=== PATIENT | female | born 1985 | race Caucasian/White ===

== ENCOUNTER → 2016-11-23 | Outpatient (REF) | payer BC ==
[2016-11-27 08:07] LABS: O+P EXAM Final report (.)
== END ==
LOC: M SFHCADAM 11:02
PROVIDERS: ATTEND Family Medicine
DX: R19.7 Diarrhea, unspecified (principal)

== ENCOUNTER → 2016-11-25 | Outpatient (REF) | payer BC ==
[2016-11-25 12:57] LABS: BASO % 0.4 % (0.0-1.0); EOS # 0.2 K/mm3 (0.0-0.50); EOS % 2.9 % (0.0-3.0); LARGE UNSTAINED CELL # 0.1 K/mm3 (0.0-0.4); LYMPH # 3.7 K/mm3 (1.5-6.5); MEAN CORPUSCULAR HEMOGLOBIN 29.6 pg (27.0-33.0); MEAN CORPUSCULAR HGB CONC 33.1 g/dl (32.0-36.5); MEAN CORPUSCULAR VOLUME 89.6 fl (80.0-96.0); MONO # 0.3 K/mm3 (0.0-0.8); MONO % 4.3 % (0.0-5.0); NEUTROPHILS # 2.7 K/mm3 (1.8-7.7); NEUTROPHILS % 39.4 % (36.0-66.0); PLATELET COUNT, AUTOMATED 206 k/mm3 (150-450); RED CELL DISTRIBUTION WIDTH 12.3 % (11.5-14.5); WHITE BLOOD COUNT 6.9 K/mm3 (4.0-10.0)
[2016-11-25 14:00] LABS: ALBUMIN 4.5 GM/DL (3.2-5.2); ALBUMIN/GLOBULIN RATIO 1.32 (1.00-1.93); ALKALINE PHOSPHATASE 72 U/L (45-117); ALT/SGPT 41 U/L (12-78); ANION GAP 7 MEQ/L (8-16); AST/SGOT 21 U/L (15-37); BILIRUBIN,TOTAL 0.4 MG/DL (0.2-1.0); BLOOD UREA NITROGEN 9 MG/DL (7-18); CALCIUM LEVEL 9.1 MG/DL (8.5-10.1); CARBON DIOXIDE LEVEL 27 MEQ/L (21-32); CHLORIDE LEVEL 106 MEQ/L (98-107); CHOLESTEROL LEVEL 200 MG/DL (<200); CREATININE FOR GFR 0.93 MG/DL (0.55-1.02); GLOMERULAR FILTRATION RATE > 60.0 (>60); GLUCOSE, FASTING 93 MG/DL (70-105); POTASSIUM SERUM 4.1 MEQ/L (3.5-5.1); SODIUM LEVEL 140 MEQ/L (136-145); TOTAL PROTEIN 7.9 GM/DL (6.4-8.2); TRIGLYCERIDES LEVEL 112 MG/DL (<150)
== END ==
LOC: M SFHCADAM 07:53
PROVIDERS: ATTEND Family Medicine
DX: Z31.69 Encounter for other general counseling and advice on procreation (principal); E66.09 Other obesity due to excess calories; R19.7 Diarrhea, unspecified; R10.2 Pelvic and perineal pain

== ENCOUNTER → 2017-03-23 | Outpatient (REF) | payer BC ==
[2017-03-23 21:19] LABS: BASO % 0.3 % (0.0-1.0); EOS # 0.1 K/mm3 (0.0-0.50); EOS % 1.3 % (0.0-3.0); LARGE UNSTAINED CELL # 0.1 K/mm3 (0.0-0.4); LARGE UNSTAINED CELL % 1.2 % (0.0-4.0); LYMPH # 3.6 K/mm3 (1.5-4.5); LYMPH % 33.8 % (24.0-44.0); MEAN CORPUSCULAR HEMOGLOBIN 30.8 pg (27.0-33.0); MEAN CORPUSCULAR HGB CONC 34.2 g/dl (32.0-36.5); MEAN CORPUSCULAR VOLUME 90.1 fl (80.0-96.0); MONO # 0.5 K/mm3 (0.0-0.8); MONO % 4.3 % (0.0-5.0); NEUTROPHILS # 6.1 K/mm3 (1.8-7.7); NEUTROPHILS % 59.1 % (36.0-66.0); PLATELET COUNT, AUTOMATED 206 k/mm3 (150-450); RED CELL DISTRIBUTION WIDTH 12.2 % (11.5-14.5); WHITE BLOOD COUNT 10.4 K/mm3 (4.0-10.0)
[2017-03-25 11:22] LABS: HBsAg Prenatal NEGATIVE (NEGATIVE)
== END ==
LOC: M LABDRWAD 20:40
PROVIDERS: ATTEND Obstetrics & Gynecology
DX: Z34.81 Encounter for supervision of other normal pregnancy, first trimester (principal)

== ENCOUNTER → 2017-04-10 | Outpatient (REF) | payer BC | LOC: M LAB REF 13:32 | PROVIDERS: ATTEND Obstetrics & Gynecology | DX: Z36 Encounter for antenatal screening of mother (principal); Z34.81 Encounter for supervision of other normal pregnancy, first trimester ==

== ENCOUNTER → 2017-06-18 | Outpatient (CLI) | payer BC ==
--- NOTE | 2017-06-18 17:12 | REP ---
Clinical: Anatomical evaluation. Comparison: None . Findings: Examination demonstrates a single live intrauterine in breech presentation. motion is identified by technologist. Placenta is noted anteriorly and grade zero without evidence for placenta previa or abruption. Amniotic fluid volume is normal. Cervix measures 3.4 cm in length and appears closed. Nuchal cord cannot be excluded. Gestational age by LMP 18 weeks 5 days with YAZ 11/14/2017 . Gestational age by current measurements 19 weeks 3 days with YAZ 11/09/2017 . FHR equals 141 beats per minute. BPD 4.4 cm 19 weeks 1 day HC 16.6 cm 19 weeks 2 days AC 13.9 cm 19 weeks 2 days FL 3.0 cm 19 weeks 2 days HL 3.0 cm 19 weeks 6 days HC/AC ratio 1.20 Estimated weight 283 grams ( 68th percentile). Anatomical assessment demonstrates normal structures including cranium, choroid plexus, cavum, cerebellum/posterior fossa, facial features, lungs, diaphragm, cord insertion, kidneys/bladder, spine, and extremities. A single umbilical artery noted. Limited evaluation of the heart/ventricular outflow tracts and stomach noted. Impression: 1. Single live intrauterine in breech presentation demonstrating appropriate interval growth. 2. Nuchal cord cannot be excluded. 3. Single umbilical artery noted. 4. Limited evaluation of the heart/ventricular outflow tracts and stomach. Remainder of the anatomical assessment is complete. Signed by Manpreet Francis MD 06/18/2017 05:04 P
== END ==
LOC: M RAD 16:10
PROVIDERS: ATTEND Obstetrics & Gynecology
DX: Z34.82 Encounter for supervision of other normal pregnancy, second trimester (principal); Z3A.18 18 weeks gestation of pregnancy

== ENCOUNTER → 2017-07-03 | Outpatient (CLI) | payer BC ==
--- NOTE | 2017-07-03 16:18 | REP ---
Obstetric ultrasound for anatomy: There is a single intrauterine gestation in a vertex presentation. There is movement and cardiac activity. heart rate is 100. The placenta is anterior. There is no placenta previa or abruptio. Placenta is grade zero. The amniotic fluid volume subjectively is normal. The cervix 3.1 cm in length. The maternal adnexa and cul-de-sac are unremarkable. By the ultrasound today gestational age is 21 weeks 2 days with an YAZ of 11/11/2017. By the first ultrasound gestational age is 21 weeks 4 days with an YAZ of 11/09/2017. By LMP the gestational age is 20-week 6 days. weight is for and 20 grams (0 pounds, 14 ounces). This is the 63rd percentile for 20 weeks 6 days. The following anatomic structures are identified and are unremarkable: Intracranial lateral ventricles, choroid plexus, cerebellum, cisterna magna, upper lip, face, facial profile, lungs, cardiac right and left ventricular outflow tracts, diaphragm, stomach, cord insertion, kidneys, bladder, spine and upper lower extremities. Suboptimally demonstrated are the four-chamber view of the heart and the three-vessel view of the umbilical cord. A followup study dedicated to these structures might be considered. Otherwise, there are no anomalies Signed by Ralph San MD 07/03/2017 04:09 P
== END ==
LOC: M RAD 14:58
PROVIDERS: ATTEND Specialist
DX: Z36 Encounter for antenatal screening of mother (principal)

== ENCOUNTER → 2017-07-22 | Outpatient (CLI) | payer BC ==
--- NOTE | 2017-07-23 10:08 | REP ---
Clinical: Anatomical re-evaluation. Comparison: 07/03/2017 . Findings: Examination demonstrates a single live intrauterine in cephalic presentation. motion is identified by technologist. Placenta is noted anteriorly and grade zero without evidence for placenta previa or abruption. Amniotic fluid volume is normal. Cervix measures 3.6 cm in length and appears closed. No evidence for nuchal cord. Gestational age by LMP 23 weeks 4 days with YAZ 11/14/2017 . Gestational age by current measurements 23 weeks 5-day with YAZ 11/13/2017 . FHR equals 136 beats per minute. Estimated weight 636 grams ( 33rd percentile). Amniotic fluid index 12.1 cm (9.8 - 21.9) Anatomical assessment demonstrates normal structures including cranium, choroid plexus, cavum, cerebellum/posterior fossa, facial features, lungs, four-chamber heart/ventricular outflow tracts, diaphragm, stomach, cord insertion, kidneys/bladder, spine, and extremities. Impression: 1. Single live intrauterine in cephalic presentation demonstrating appropriate interval growth. 2. Two vessel cord again identified. 3. Otherwise complete, normal anatomical assessment. Signed by Manpreet Francis MD 07/23/2017 10:00 A
== END ==
LOC: M RAD 10:49
PROVIDERS: ATTEND Advanced Practice Midwife
DX: Z36.89 Encounter for other specified antenatal screening (principal); Z3A.23 23 weeks gestation of pregnancy

== ENCOUNTER → 2017-07-24 | Outpatient (CLI) | payer BC ==
[2017-07-24 08:52] LABS: BASO % 0.3 % (0.0-1.0); EOS # 0.1 10^3/uL (0.0-0.50); EOS % 1.1 % (0.0-3.0); IMMATURE GRANULOCYTE % 0.7 % (0-0); LYMPH # 2.5 10^3/uL (1.5-4.5); LYMPH % 26.4 % (24.0-44.0); MEAN CORPUSCULAR HEMOGLOBIN 30.2 pg (27.0-33.0); MEAN CORPUSCULAR HGB CONC 32.9 g/dl (32.0-36.5); MEAN CORPUSCULAR VOLUME 91.7 fl (80.0-96.0); MONO # 0.6 10^3/uL (0.0-0.8); MONO % 5.8 % (0.0-5.0); NEUTROPHILS # 6.3 10^3/uL (1.8-7.7); NEUTROPHILS % 65.7 % (36.0-66.0); PLATELET COUNT, AUTOMATED 191 10^3/uL (150-450); RED CELL DISTRIBUTION WIDTH 13.1 % (11.5-14.5)
[2017-07-27 08:10] LABS: WHITE BLOOD COUNT 9.6 10^3/uL (4.0-10.0)
== END ==
LOC: M LAB 06:56
PROVIDERS: ATTEND Advanced Practice Midwife
DX: Z34.83 Encounter for supervision of other normal pregnancy, third trimester (principal); Z3A.00 Weeks of gestation of pregnancy not specified
CPT/HCPCS: 36415; 82950; 85025; 86850; 86900; 86901; J2790

== ENCOUNTER → 2017-09-18 | Outpatient (CLI) | payer BC ==
--- NOTE | 2017-09-18 19:13 | REP ---
Followup OB ultrasound: 09/18/2017. Clinical history: Supervision of . Known two vessel cord. Comparison: 07/22/2017, 07/03/2017. Findings: There is a single intrauterine gestation in vertex position. The cervix is 3.4 cm long and closed. There is an anterior grade 1 placenta without previa or abruption. Visually, the amniotic fluid volume is normal. Index measurement is 14.8 with a normal range 8.6 - 24.2. Largest fluid pocket is 6.7 cm. Evaluation of maternal adnexa and cul-de-sac regions showed no fluid or other abnormality grossly. biometry BPD 7.8 cm = 31 weeks 3 days HC 28.3 cm = 31 weeks 1 day AC 29.1 cm = 33 weeks 1 day FL 6.2 cm = 32 weeks H L 5.6 cm = 32 weeks 3 days This gives an average ultrasound age of 32 weeks with EDC 11/13/2017. By initial ultrasound she is 32 weeks 4 days with EDC 11/09/2017. Measurement ratios are all in the normal range. The estimated weight 1974 grams or 4 pounds 5 ounces is 54th percentile for dating based on LMP (31 weeks 6 days). Anatomy screen shows heart rate 141 and regular. Limited structures visible. The cranial vault, cavum septum pellucidum, profile and facial views, four-chamber heart view, diaphragm, left-sided stomach bubble, the two vessel cord, kidneys and bladder and the transverse and longitudinal views of the spine were unremarkable. No evidence of a nuchal cord. Impression: Single intrauterine gestation in vertex presentation with a closed 3.4 cm long cervix, visually normal amniotic fluid volume, anterior grade 1 placenta without previa or abruption and normal LIZA measurement 14.8. Size and dates show normal interval growth. See data above, No visible anomalies except for the two vessel cord. Heart rate 141 and regular. Signed by Tacho Mcarthur MD 09/18/2017 07:16 P
== END ==
LOC: M RAD 15:38
PROVIDERS: ATTEND Advanced Practice Midwife
DX: Z34.83 Encounter for supervision of other normal pregnancy, third trimester (principal); Z3A.32 32 weeks gestation of pregnancy

== ENCOUNTER → 2017-10-16 | Outpatient (CLI) | payer BC | LOC: M RAD 15:17 | DX: Z34.83 Encounter for supervision of other normal pregnancy, third trimester (principal); Z3A.34 34 weeks gestation of pregnancy | CPT/HCPCS: 76816 ==

== ENCOUNTER → 2017-11-06 | Outpatient (CLI) | payer BC | LOC: M RAD 06:28 | DX: Z36.89 Encounter for other specified antenatal screening (principal); Z3A.36 36 weeks gestation of pregnancy | CPT/HCPCS: 76816 ==

== ENCOUNTER 2017-11-07 17:05 | Inpatient (IN) | payer BC ==
[2017-11-07] MEDS ORDERED: LR 1,000 ML IV ×2 (18:01→22:13)
[2017-11-07] MEDS: LACTATED RINGER'S 1000 ML IV (18:15)
[2017-11-07 18:22] LABS: HEMATOCRIT 37.8 % (36.0-47.0); HEMOGLOBIN 12.8 g/dl (12.0-16.0); MEAN CORPUSCULAR HEMOGLOBIN 30.3 pg (27.0-33.0); MEAN CORPUSCULAR HGB CONC 33.9 g/dl (32.0-36.5); MEAN CORPUSCULAR VOLUME 89.4 fl (80.0-96.0); PLATELET COUNT, AUTOMATED 196 10^3/uL (150-450); RED BLOOD COUNT 4.23 10^6/uL (4.00-5.40); RED CELL DISTRIBUTION WIDTH 13.3 % (11.5-14.5); WHITE BLOOD COUNT 17.3 10^3/uL (4.0-10.0)
[2017-11-07 19:11] LABS: AMPHETAMINES URINE REFLEX NEGATIVE (NEGATIVE); BARBITURATES URINE REFLEX NEGATIVE (NEGATIVE); BENZODIAZEPINES URINE REFLEX NEGATIVE (NEGATIVE); CANNABINOIDS URINE REFLEX NEGATIVE (NEGATIVE); COCAINE METABOLITE URINE REFLE NEGATIVE (NEGATIVE); METHADONE URINE REFLEX NEGATIVE (NEGATIVE); OPIATES URINE REFLEX NEGATIVE (NEGATIVE); PHENCYCLIDINE URINE REFLEX NEGATIVE (NEGATIVE)
[2017-11-07] MEDS ORDERED: FENTANYL 2MCG/ML ROPIVACAINE 0.2% IN 0.9% NACL 200ML IVBAG As Ordered (19:16)
[2017-11-07] MEDS ORDERED: OXYTOCIN 30 UNITS IN 0.9% NaCl 500ML IV BAG (J2590) As Ordered ×2 (20:44→22:02)
[2017-11-07] MEDS ORDERED: ceFAZolin 2 GM/D5W 50 ML IV BAG (J0690 PER 500MG) As Ordered (21:03)
[2017-11-07] MEDS ORDERED: OXYTOCIN INJ 10 UNITS/ML VIAL (J2590) As Ordered ×2 (21:06)
[2017-11-07] MEDS ORDERED: MIDAZOLAM INJ 2 MG/2 ML VIAL (J2250) As Ordered (21:08)
[2017-11-07] MEDS ORDERED: MORPHINE PRES-FREE INJ 10 MG/10 ML VIAL (J2274) As Ordered (21:13)
[2017-11-07] MEDS ORDERED: NALOXONE INJ 0.4 MG/1 ML VIAL (J2310) IV ×3 (21:15→22:30)
[2017-11-07] MEDS ORDERED: METOCLOPRAMIDE INJ 10MG/2ML VIAL (J2765) IV (21:15)
[2017-11-07] MEDS ORDERED: LIDOCAINE PRES-FREE 2% 10ML AMP As Ordered ×2 (21:18)
[2017-11-07 21:24] LABS: CORD GAS ABE V -8.3; CORD GAS HCO3 V 19.5 MEQ/L; CORD GAS O2 SAT V 41.3 %; CORD GAS PCO2 V 48.7 mmHg; CORD GAS PH V 7.221 UNITS; CORD GAS PO2 V 20.8 mmHg; CORD GAS SBC V 16.6 MEQ/L
[2017-11-07 21:27] LABS: CORD GAS ABE A -10.3; CORD GAS HCO3 A 18.6 MEQ/L; CORD GAS O2 SAT A 43.6 %; CORD GAS PCO2 A 52.2 mmHg; CORD GAS PO2 A 22.8 mmHg; CORD GAS SBC A 15.3 MEQ/L; CORD GAS TCO2 A 20.2 MEQ/L
[2017-11-07] MEDS ORDERED: ONDANSETRON 4MG/2ML VIAL (J2405) IV ×2 (22:15→22:30)
[2017-11-07] MEDS ORDERED: NALBUPHINE HCL 10 MG/ML AMP (J2300) IV (22:15)
[2017-11-07] MEDS ORDERED: PERCOCET 5MG/325MG TAB PO (22:15)
[2017-11-07] MEDS ORDERED: fentaNYL 100 MCG/2 ML INJECTION (J3010) IV (22:15)
[2017-11-07] MEDS ORDERED: MOM 30ML SUSPENSION UDC PO (22:15)
[2017-11-07] MEDS: OXYTOCIN DRIP 30 UNITS in APPROPRIATE DILUENT 1 EA IV (22:15)
[2017-11-07] MEDS ORDERED: KETOROLAC 30 MG/ML VIAL (J1885) IV (22:15)
[2017-11-07] MEDS ORDERED: diphenhydrAMINE INJ 50MG/ML VIAL (J1200) IV (22:30)
[2017-11-07] MEDS ORDERED: EPIDURAL COMMENT XX (22:30)
[2017-11-07] MEDS ORDERED: ePHEDrine INJ 50 MG/ML VIAL IV (22:30)
[2017-11-07] MEDS ORDERED: REFRIGERATOR IV KEYS XX (22:30)
[2017-11-07] MEDS: FENTANYL/ROPIVACAINE/NACL BAG 200 ML EPIDURAL (22:30)
[2017-11-07] MEDS ORDERED: EPIDURAL/PCA KEYS XX (22:30)
[2017-11-08] MEDS: NALBUPHINE HCL 10 MG/ML AMP (J2300) IV (03:06)
[2017-11-08] MEDS: ONDANSETRON 4MG/2ML VIAL (J2405) IV (03:07)
[2017-11-08] MEDS: KETOROLAC 30 MG/ML VIAL (J1885) IV ×4 (04:43→22:31)
[2017-11-08] MEDS: PERCOCET 5MG/325MG TAB PO ×2 (04:43→15:52)
[2017-11-08 06:43] LABS: HEMATOCRIT 28.2 % (36.0-47.0); MEAN CORPUSCULAR HEMOGLOBIN 30.6 pg (27.0-33.0); MEAN CORPUSCULAR VOLUME 89.8 fl (80.0-96.0); PLATELET COUNT, AUTOMATED 141 10^3/uL (150-450); RED BLOOD COUNT 3.14 10^6/uL (4.00-5.40); RED CELL DISTRIBUTION WIDTH 13.7 % (11.5-14.5); WHITE BLOOD COUNT 19.4 10^3/uL (4.0-10.0)
[2017-11-08 06:48] LABS: HEMOGLOBIN 9.6 g/dl (12.0-16.0)
[2017-11-08] MEDS: PRENATAL VITAMINS CHEWABLE TABLET PO (09:00)
[2017-11-08] MEDS: DOCUSATE SODIUM 100 MG CAP PO ×2 (10:40→20:50)
[2017-11-08 12:48] LABS: FETAL SCREEN PROF. 1 1
[2017-11-08] MEDS: RHOGAM 300 MCG (1500 IU) INJ (J2790) IM (13:51)
[2017-11-08] MEDS: FENTANYL/ROPIVACAINE/NACL BAG 200 ML EPIDURAL (18:30)
[2017-11-08] MEDS ORDERED: ONDANSETRON 4MG/2ML VIAL (J2405) IV (21:00)
[2017-11-09] MEDS: PERCOCET 5MG/325MG TAB PO ×3 (05:41→21:33)
[2017-11-09] MEDS: IBUPROFEN 800 MG TAB PO ×3 (06:44→23:07)
[2017-11-09] MEDS: DOCUSATE SODIUM 100 MG CAP PO ×2 (08:05→21:31)
[2017-11-09] MEDS: PRENATAL VITAMINS CHEWABLE TABLET PO (08:06)
[2017-11-09] MEDS: MEASLES,MUMPS,RUBELLA VACCINE INJ (MMR-II) (90707) SC (08:06)
[2017-11-09] MEDS: FENTANYL/ROPIVACAINE/NACL BAG 200 ML EPIDURAL (08:11)
[2017-11-10] MEDS: PERCOCET 5MG/325MG TAB PO (03:15)
[2017-11-10] MEDS: IBUPROFEN 800 MG TAB PO (06:23)
[2017-11-10] MEDS: DOCUSATE SODIUM 100 MG CAP PO (08:43)
[2017-11-10] MEDS: PRENATAL VITAMINS CHEWABLE TABLET PO (08:43)
== END 2017-11-10 10:20 | disposition home or self-care (01) | DRG 540 ==
LOC: M LDO 17:05 → M OBS 11-08 00:01 → M LDI 17:47 → M OBS 11-08 04:38
PROC: 10D00Z1 Extraction of Products of Conception, Low, Open Approach (ICD-10-PCS; principal; 2017-11-07)
DX: O76 Abnormality in fetal heart rate and rhythm complicating labor and delivery (principal); Z37.0 Single live birth; Z3A.39 39 weeks gestation of pregnancy

== ENCOUNTER → 2018-03-02 | Outpatient (REF) | payer BC ==
[2018-03-04 14:13] LABS: HPV HYBRID CAPTURE II Negative (Negative)
== END ==
LOC: M LAB REF 12:52
DX: Z12.4 Encounter for screening for malignant neoplasm of cervix (principal)
CPT/HCPCS: 88142

== ENCOUNTER → 2018-04-29 | Outpatient (REF) | payer BC ==
[2018-04-29 19:45] LABS: BASO % 0.3 % (0.0-1.0); EOS # 0.1 10^3/uL (0.0-0.50); EOS % 0.7 % (0.0-3.0); HEMATOCRIT 38.3 % (36.0-47.0); HEMOGLOBIN 12.7 g/dl (12.0-15.5); IMMATURE GRANULOCYTE % 0.3 % (0-3.0); LYMPH # 2.5 10^3/uL (1.5-4.5); LYMPH % 27.7 % (24.0-44.0); MEAN CORPUSCULAR HEMOGLOBIN 29.5 pg (27.0-33.0); MEAN CORPUSCULAR HGB CONC 33.2 g/dl (32.0-36.5); MEAN CORPUSCULAR VOLUME 89.1 fl (80.0-96.0); MONO # 0.5 10^3/uL (0.0-0.8); MONO % 5.8 % (0.0-5.0); NEUTROPHILS # 5.9 10^3/uL (1.8-7.7); NEUTROPHILS % 65.2 % (36.0-66.0); PLATELET COUNT, AUTOMATED 218 10^3/uL (150-450); RED CELL DISTRIBUTION WIDTH 13.2 % (11.5-14.5)
[2018-04-29 23:52] LABS: CHLAMYDIA DNA AMPLIFICATION NEGATIVE (NEGATIVE); GC DNA AMPLIFICATION NEGATIVE (NEGATIVE)
[2018-04-30 12:03] LABS: RUBELLA IgG QUALITATIVE IMMUNE (IMMUNE)
[2018-04-30 12:11] LABS: HBsAg Prenatal NEGATIVE (NEGATIVE)
[2018-04-30 12:34] LABS: HEPATITIS C VIRUS ABY INDEX < 0.0 INDEX (<0.8)
[2018-04-30 12:35] LABS: HIV 1&2 SCREEN CENTAUR NEGATIVE (NEGATIVE)
== END ==
LOC: M LAB REF 19:10
DX: Z34.91 Encounter for supervision of normal pregnancy, unspecified, first trimester (principal); Z3A.09 9 weeks gestation of pregnancy

== ENCOUNTER → 2018-06-18 | Outpatient (CLI) | payer BC | LOC: M RAD 13:10 | DX: Z36.89 Encounter for other specified antenatal screening (principal) | CPT/HCPCS: 76811 ==

== ENCOUNTER → 2018-07-20 | Outpatient (CLI) | payer BC | LOC: M RAD 15:37 | DX: Z34.82 Encounter for supervision of other normal pregnancy, second trimester (principal); Z36.89 Encounter for other specified antenatal screening; Z3A.23 23 weeks gestation of pregnancy | CPT/HCPCS: 76816 ==

== ENCOUNTER → 2018-08-11 | Outpatient (CLI) | payer BC ==
[2018-08-11 09:44] LABS: HEMATOCRIT 34.3 % (36.0-47.0); HEMOGLOBIN 11.4 g/dl (12.0-15.5); MEAN CORPUSCULAR HEMOGLOBIN 30.8 pg (27.0-33.0); MEAN CORPUSCULAR HGB CONC 33.2 g/dl (32.0-36.5); MEAN CORPUSCULAR VOLUME 92.7 fl (80.0-96.0); PLATELET COUNT, AUTOMATED 166 10^3/uL (150-450); RED CELL DISTRIBUTION WIDTH 13.1 % (11.5-14.5); WHITE BLOOD COUNT 8.2 10^3/uL (4.0-10.0)
[2018-08-11 09:49] LABS: GLUCOSE CHALLENGE TEST 1 HOUR 140 MG/DL (LESS THAN 140)
[2018-08-12 09:06] LABS: RH ONLY RHOGAM 1 1
== END ==
LOC: M LAB 08:02
DX: Z34.82 Encounter for supervision of other normal pregnancy, second trimester (principal); Z36.89 Encounter for other specified antenatal screening
CPT/HCPCS: 82950

== ENCOUNTER → 2018-08-26 | Outpatient (CLI) | payer BC ==
[2018-08-26 07:40] LABS: GLUCOSE, FASTING 87 MG/DL (LESS THAN 95)
[2018-08-26 09:21] LABS: 1 HR GLUCOSE 119 MG/DL (LESS THAN 180)
[2018-08-26 10:01] LABS: 2 HR GLUCOSE 144 MG/DL (LESS THAN 155)
[2018-08-26 11:19] LABS: 3 HR GLUCOSE 106 MG/DL (LESS THAN 140)
== END ==
LOC: M LAB 07:06
DX: R73.02 Impaired glucose tolerance (oral) (principal)
CPT/HCPCS: 82951

== ENCOUNTER 2018-09-26 08:10 | Outpatient (CLI) | payer BC ==
[~2018-09-26] VITALS: Ht 157.5 cm; Wt 75.9 kg
[~2018-09-26 08:10] MED LIST: IBUP1TAB7 PO; PERCOCET PO; PRENTAB9 PO
[2018-09-26 08:29] VITALS: BP 134/81
[2018-09-26 08:30] VITALS: BP 130/79
[2018-09-26 08:40] VITALS: BP 123/73
[2018-09-26] MEDS ORDERED: LR 1,000 ML IV SCH (08:53)
[2018-09-26] MEDS ORDERED: LACTATED RINGER'S 1000 ML IV STA (08:53)
[2018-09-26 09:19] LABS: BASO % 0.2 % (0.0-1.0); EOS # 0.1 10^3/uL (0.0-0.50); EOS % 0.6 % (0.0-3.0); HEMATOCRIT 36.1 % (36.0-47.0); HEMOGLOBIN 12.1 g/dl (12.0-15.5); LYMPH # 1.6 10^3/uL (1.5-4.5); MEAN CORPUSCULAR HEMOGLOBIN 30.6 pg (27.0-33.0); MEAN CORPUSCULAR HGB CONC 33.5 g/dl (32.0-36.5); MEAN CORPUSCULAR VOLUME 91.2 fl (80.0-96.0); MONO # 0.5 10^3/uL (0.0-0.8); MONO % 5.2 % (0.0-5.0); NEUTROPHILS # 7.3 10^3/uL (1.8-7.7); NEUTROPHILS % 76.4 % (36.0-66.0); PLATELET COUNT, AUTOMATED 169 10^3/uL (150-450); RED BLOOD COUNT 3.96 10^6/uL (4.00-5.40); WHITE BLOOD COUNT 9.5 10^3/uL (4.0-10.0)
[2018-09-26 09:21] LABS: APPEARANCE, URINE HAZY (CLEAR); BACTERIA, URINE AUTO NEGATIVE (NEGATIVE); BILIRUBIN, URINE AUTO NEGATIVE (NEGATIVE); BLOOD, URINE BLOOD NEGATIVE (NEGATIVE); COLOR, URINE YELLOW (YELLOW); GLUCOSE, URINE (UA) AUTO NEGATIVE (NEGATIVE); KETONE, URINE AUTO TRACE mg/dL (NEGATIVE); LEUKOCYTE ESTERASE, URINE AUTO NEGATIVE (NEGATIVE); MUCUS, URINE SMALL (NEGATIVE); NITRITE, URINE AUTO NEGATIVE (NEGATIVE); PROTEIN, URINE AUTO NEGATIVE (NEGATIVE); RBC, URINE AUTO 0 /HPF (0-3); SPECIFIC GRAVITY URINE AUTO 1.018 (1.002-1.035); SQUAMOUS EPITHELIAL CELL UR AU 6 /HPF (0-6); UROBILINOGEN, URINE AUTO 0.2 mg/dL (0.0-2.0); WBC, URINE AUTO 2 /HPF (0-3)
[2018-09-26 09:37] VITALS: BP 121/69
[2018-09-26 09:54] LABS: ALBUMIN 3.3 GM/DL (3.2-5.2); ALT/SGPT 13 U/L (12-78); BILIRUBIN,TOTAL 0.3 MG/DL (0.2-1.0); BLOOD UREA NITROGEN 5 MG/DL (7-18); CALCIUM LEVEL 8.4 MG/DL (8.5-10.1); CARBON DIOXIDE LEVEL 23 MEQ/L (21-32); CHLORIDE LEVEL 107 MEQ/L (98-107); CREATININE FOR GFR 0.61 MG/DL (0.55-1.30); GLOMERULAR FILTRATION RATE > 60.0 (>60); GLUCOSE, FASTING 80 MG/DL (70-100); POTASSIUM SERUM 3.9 MEQ/L (3.5-5.1); SODIUM LEVEL 140 MEQ/L (136-145); TOTAL PROTEIN 6.9 GM/DL (6.4-8.2)
[2018-09-26 11:03] VITALS: BP 128/66
== END 2018-09-26 11:20 | disposition home or self-care (01) ==
LOC: M LDO 08:10
PROVIDERS: ATTEND Specialist
DX: O99.89 Other specified diseases and conditions complicating pregnancy, childbirth and the puerperium (principal); R42 Dizziness and giddiness; Z3A.32 32 weeks gestation of pregnancy

== ENCOUNTER → 2018-10-14 | Outpatient (REF) | payer BC ==
[2018-10-14 20:44] LABS: TOTAL PROTEIN,RANDOM URINE 19.1 MG/DL (0.0-12.0)
== END ==
LOC: M LAB REF 18:16
PROVIDERS: ATTEND Advanced Practice Midwife
DX: Z36.89 Encounter for other specified antenatal screening (principal)

== ENCOUNTER → 2018-10-21 | Outpatient (REF) | payer BC | LOC: M LAB REF 17:10 | PROVIDERS: ATTEND Advanced Practice Midwife | DX: Z34.83 Encounter for supervision of other normal pregnancy, third trimester (principal) ==

== ENCOUNTER 2018-11-11 20:54 | Inpatient (IN) | payer BC ==
[~2018-11-11] VITALS: Ht 157.5 cm; Wt 77.3 kg
[2018-11-11] MEDS ORDERED: LACTATED RINGER'S 1000 ML IV STA (21:15)
[2018-11-12] VITALS (8 sets, daily range): BP systolic 106–148; BP diastolic 51–85
[2018-11-12] MEDS ORDERED: AMOX25SS PO (04:37)
[2018-11-12] MEDS ORDERED: MUCI600T31 PO (04:37)
[2018-11-12 05:52] LABS: HEMATOCRIT 40.2 % (36.0-47.0); HEMOGLOBIN 13.3 g/dl (12.0-15.5); MEAN CORPUSCULAR HEMOGLOBIN 30.7 pg (27.0-33.0); MEAN CORPUSCULAR HGB CONC 33.1 g/dl (32.0-36.5); MEAN CORPUSCULAR VOLUME 92.8 fl (80.0-96.0); PLATELET COUNT, AUTOMATED 162 10^3/uL (150-450); RED BLOOD COUNT 4.33 10^6/uL (4.00-5.40); WHITE BLOOD COUNT 8.8 10^3/uL (4.0-10.0)
[2018-11-12] MEDS ORDERED: LR 1,000 ML IV SCH ×2 (06:00→09:00)
[2018-11-12] MEDS ORDERED: BICITRA 30ML SOLN UDC PO ONE (06:00)
[2018-11-12] MEDS ORDERED: MORPHINE PRES-FREE INJ 10 MG/10 ML VIAL (J2274) As Ordered ONE (07:16)
[2018-11-12] MEDS ORDERED: BUPIVACAINE/DEXTROSE 0.75% 2 ML AMP As Ordered ONE (07:16)
[2018-11-12] MEDS ORDERED: OXYTOCIN INJ 10 UNITS/ML VIAL (J2590) As Ordered ONE (07:16)
[2018-11-12] MEDS ORDERED: PHENYLephrine HCL 500 MCG/5 ML (100MCG/ML) SYRINGE (J2370) As Ordered ONE (07:17)
[2018-11-12] MEDS ORDERED: ePHEDrine SULFATE 25 MG/5 ML(5MG/ML) SYRINGE As Ordered ONE (07:17)
[2018-11-12] MEDS ORDERED: diphenhydrAMINE INJ 50MG/ML VIAL (J1200) IV PRN (07:46)
[2018-11-12] MEDS ORDERED: ONDANSETRON 4MG/2ML VIAL (J2405) IV PRN ×3 (07:46→09:00)
[2018-11-12] MEDS ORDERED: NALOXONE INJ 0.4 MG/1 ML VIAL (J2310) IV PRN ×2 (07:46)
[2018-11-12] MEDS ORDERED: NALBUPHINE HCL 10 MG/ML AMP (J2300) IV PRN (07:46)
[2018-11-12] MEDS ORDERED: KETOROLAC 60 MG/2 ML VIAL (J1885) As Ordered ONE (08:28)
[2018-11-12] MEDS ORDERED: ONDANSETRON 4MG/2ML VIAL (J2405) As Ordered ONE (08:28)
[2018-11-12] MEDS ORDERED: OXYTOCIN DRIP 30 UNITS in APPROPRIATE DILUENT 1 EA IV SCH (08:43)
[2018-11-12] MEDS ORDERED: MEASLES,MUMPS,RUBELLA VACCINE INJ (MMR-II) (90707) SC SCH (08:45)
[2018-11-12] MEDS ORDERED: DOCUSATE SODIUM 100 MG CAP PO PRN (08:45)
[2018-11-12] MEDS ORDERED: RHOGAM 300 MCG (1500 IU) INJ (J2790) IM SCH (08:45)
[2018-11-12] MEDS ORDERED: PERCOCET 5MG/325MG TAB PO PRN ×2 (08:45→09:00)
[2018-11-12] MEDS ORDERED: fentaNYL 100 MCG/2 ML INJECTION (J3010) IV PRN (09:00)
[2018-11-12] MEDS ORDERED: METOCLOPRAMIDE INJ 10MG/2ML VIAL (J2765) IV PRN (09:00)
[2018-11-12] MEDS ORDERED: OXYTOCIN 30 UNITS IN 0.9% NaCl 500ML IV BAG (J2590) As Ordered ONE (09:02)
--- NOTE | 2018-11-12 09:11 | RO ---
DATE OF PROCEDURE: 11/11/2018 PREPROCEDURE DIAGNOSIS: 39 weeks prior section times one. POSTPROCEDURE DIAGNOSIS: 39 weeks prior section times one. PROCEDURE: Repeat low transverse section. SURGEON: Dr. Presley Ray. HAM CURER: VERITO Pickard ANESTHESIA: Spinal. ESTIMATED BLOOD LOSS: 500 mL. URINE OUTPUT: 25 mL. FLUIDS: 1000 mL lactated ringers. FINDINGS: 3400 grams, 7 pound 8 ounce female , 8 and 9. Normal uterus, fallopian tubes and ovaries. OPERATIVE SUMMARY: The patient was taken to the operating room where spinal anesthesia was induced. She was prepped and draped in a sterile fashion in the supine position. Drew catheter was placed. A Pfannenstiel skin incision was made with a scalpel and carried through to the fascia. The fascia was nicked and extended. The fascia was dissected off the rectus muscles. The rectus muscles were divided. The peritoneal cavity was entered. Bladder flap was created. Curvilinear incision was made in the lower uterine segment until clear fluid was noted. This was extended manually. The infant was delivered in vertex position without difficulty. The cord was doubly clamped and cut. The infant was handed off to the awaiting nurses. The placenta was expressed. The uterus was exteriorized and cleared of clots and debris. Uterine incision was closed with #0 Vicryl in a running locked fashion. A second imbricating layer of #0 Vicryl was placed. The uterus was placed back in the abdominal cavity. The peritoneum was closed with #2-0 Vicryl in a running fashion. The fascia was closed with #0 Vicryl in a running fashion. The deep layer was irrigated and closed with #2-0 Chromic. The skin was closed with #4-0 Monocryl subcuticular sutures. Sponge, instrument, needle counts were correct. VERITO Pickard, assisted with all aspects of the procedure from beginning to end. She assisted with opening all layers of the abdomen and creating the hysterotomy. She assisted with expulsion of the fetus. She then assisted with closure of all layers.
[2018-11-12] MEDS: PRENATAL VITAMINS CHEWABLE TABLET PO SCH (11:30)
[2018-11-12] MEDS: LR 1,000 ML IV SCH ×2 (11:57→16:49)
[2018-11-12] MEDS: METOCLOPRAMIDE INJ 10MG/2ML VIAL (J2765) IV PRN ×2 (14:18→20:17)
[2018-11-12] MEDS: KETOROLAC 30 MG/ML VIAL (J1885) IV SCH ×2 (15:07→21:10)
[2018-11-12] MEDS ORDERED: LR 500 ML IV ONE (17:15)
[2018-11-12] MEDS: PERCOCET 5MG/325MG TAB PO PRN (20:17)
[2018-11-13 02:05] VITALS: BP 137/60
[2018-11-13] MEDS: KETOROLAC 30 MG/ML VIAL (J1885) IV SCH (03:42)
[2018-11-13 06:13] VITALS: BP 104/65
[2018-11-13 06:42] LABS: HEMATOCRIT 28.6 % (36.0-47.0); MEAN CORPUSCULAR HGB CONC 32.9 g/dl (32.0-36.5); MEAN CORPUSCULAR VOLUME 94.4 fl (80.0-96.0); PLATELET COUNT, AUTOMATED 141 10^3/uL (150-450); RED BLOOD COUNT 3.03 10^6/uL (4.00-5.40); WHITE BLOOD COUNT 10.3 10^3/uL (4.0-10.0)
--- NOTE | 2018-11-13 06:51 | IPNPDOC ---
Text Note Date of Service The patient was seen on 11/13/18. NOTE PO #1 Feels well. Adequate pain managmenet. Breast and bottle feeding. Voiding. VSS, afebrile, normotensive. CBC pending Breasts soft,n ipples intact Fundus firm Dressing intact, old drainage Lochia rubra light without odor PO #1 Routine care. Anticipate D/C in am VS,Fishbone, I+O VS, Fishbone, I+O Vital Signs Date Time Temp Pulse Resp B/P (MAP) Pulse Ox O2 Delivery O2 Flow Rate FiO2 11/13/18 06:13 98.0 71 18 104/65 (78) 99 I&O- Last 24 Hours up to 6 AM 11/13/18 06:00 Intake Total 3593 ml Output Total 1725 ml Balance 1868 ml Paulina Villalpando CNM Nov 13, 2018 06:51
[2018-11-13 06:56] LABS: HEMOGLOBIN 9.4 g/dl (12.0-15.5)
[2018-11-13] MEDS: PERCOCET 5MG/325MG TAB PO PRN ×2 (08:13→15:54)
[2018-11-13] MEDS: PRENATAL VITAMINS CHEWABLE TABLET PO SCH (08:13)
[2018-11-13 10:00] VITALS: BP 122/71
[2018-11-13] MEDS: IBUPROFEN 800 MG TAB PO SCH ×2 (11:00→18:58)
[2018-11-13 14:00] VITALS: BP 125/68
[2018-11-13 18:00] VITALS: BP 124/74
[2018-11-13 22:00] VITALS: BP 116/58
[2018-11-14 02:17] VITALS: BP 116/59
[2018-11-14] MEDS: IBUPROFEN 800 MG TAB PO SCH (02:45)
[2018-11-14 06:00] VITALS: BP 110/59
[2018-11-14] MEDS ORDERED: PERCOCET PO (08:10)
[2018-11-14] MEDS ORDERED: IBUP1TAB7 PO (08:11)
[2018-11-14] MEDS: PRENATAL VITAMINS CHEWABLE TABLET PO SCH (08:59)
[2018-11-14] MEDS: PERCOCET 5MG/325MG TAB PO PRN (09:24)
[2018-11-14] MEDS ORDERED: COLA100C5 PO (09:56)
--- NOTE | 2018-11-15 04:07 | DSES ---
DATE OF ADMISSION: 11/12/2018 DATE OF DISCHARGE: 11/14/2018 DISCHARGE DIAGNOSIS: Repeat section. DISCHARGE CONDITION: Stable. PROCEDURES PERFORMED WHILE IN HOSPITAL: 1. Spinal anesthesia. 2. section. HISTORY AND HOSPITAL COURSE: This patient presented for a scheduled section which was unremarkable and productive of a liveborn female , Apgars 8 and 9, weight was 3400 grams. Estimated blood loss was 500 mL. She did well postoperatively. By postop day #2 had met all discharge criteria. She was discharged home in stable condition. Physical exam on day of discharge: Her vital signs are stable. She is afebrile. General appearance is well appearing in no acute distress. Her abdomen was appropriately tender. Fundus was below umbilicus. Her incision was dressed. Extremities negative for calf tenderness. DISCHARGE MEDICATION: Ibuprofen and Percocet. DISCHARGE INSTRUCTIONS: 1. She was instructed to follow up in two weeks for incision check. 2. To remain on pelvic rest. 3. To report severe pain, heavy vaginal bleeding, fever or incisional issues.
== END 2018-11-14 11:00 | disposition home or self-care (01) | DRG 540 ==
LOC: M LDI 20:54 → M OBS 11-12 11:00
PROVIDERS: ADMIT Specialist; ATTEND Specialist
PROC: 10D00Z1 Extraction of Products of Conception, Low, Open Approach (ICD-10-PCS; principal; 2018-11-11)
DX: O34.211 Maternal care for low transverse scar from previous cesarean delivery (principal); Z3A.39 39 weeks gestation of pregnancy; Z37.0 Single live birth

== ENCOUNTER → 2020-06-08 | Outpatient (REF) | payer BC ==
[~2020-06-08] MED LIST changes: +AMOX25SS PO; +COLA100C5 PO; +MUCI600T31 PO
[2020-06-08 15:06] LABS: FREE T4 1.1 NG/DL (0.76-1.46); THYROID STIMULATING HORMONE 0.967 uIU/ML (0.358-3.740)
== END ==
LOC: M LABDRWAD 12:34 → M LAB REF 12:34
PROVIDERS: ATTEND Family Medicine
DX: F33.0 Major depressive disorder, recurrent, mild (principal)

== ENCOUNTER → 2020-09-13 | Outpatient (REF) | payer BC | LOC: M SFHCADAM 16:11 | PROVIDERS: ATTEND Family Medicine | DX: N76.0 Acute vaginitis (principal) ==

== ENCOUNTER → 2021-03-05 | Outpatient (REF) | payer BC ==
[2021-03-05 13:02] LABS: BASO % 0.6 % (0.0-1.0); EOS # 0.2 10^3/uL (0.0-0.5); EOS % 2.8 % (0.0-3.0); HEMATOCRIT 41.8 % (36.0-47.0); HEMOGLOBIN 13.6 g/dl (12.0-15.5); LYMPH # 2.8 10^3/uL (1.5-5.0); LYMPH % 43.7 % (24.0-44.0); MEAN CORPUSCULAR HEMOGLOBIN 29.2 pg (27.0-33.0); MEAN CORPUSCULAR HGB CONC 32.5 g/dl (32.0-36.5); MEAN CORPUSCULAR VOLUME 89.9 fl (80.0-96.0); MONO # 0.5 10^3/uL (0.0-0.8); MONO % 7.1 % (2.0-8.0); NEUTROPHILS # 2.9 10^3/uL (1.5-8.5); NEUTROPHILS % 45.3 % (36.0-66.0); PLATELET COUNT, AUTOMATED 183 10^3/uL (150-450); RED BLOOD COUNT 4.65 10^6/uL (4.00-5.40); WHITE BLOOD COUNT 6.5 10^3/uL (4.0-10.0)
[2021-03-05 13:36] LABS: ALT/SGPT 31 U/L (12-78); BILIRUBIN,TOTAL 0.3 MG/DL (0.2-1.0); BLOOD UREA NITROGEN 11 MG/DL (7-18); CALCIUM LEVEL 9.2 MG/DL (8.5-10.1); CARBON DIOXIDE LEVEL 26 MEQ/L (21-32); CHLORIDE LEVEL 109 MEQ/L (98-107); CHOLESTEROL LEVEL 210 MG/DL (<200); CREATININE FOR GFR 0.72 MG/DL (0.55-1.30); GLOMERULAR FILTRATION RATE > 60.0 (>60); GLUCOSE, FASTING 89 MG/DL (70-100); HDL CHOLESTEROL 58 MG/DL (>40); LDL CHOLESTEROL 119 MG/DL (<100); NON-HDL-C 152 MG/DL; POTASSIUM SERUM 4.5 MEQ/L (3.5-5.1); SODIUM LEVEL 140 MEQ/L (136-145); THYROID STIMULATING HORMONE 0.719 uIU/ML (0.358-3.740); TOTAL PROTEIN 7.4 GM/DL (6.4-8.2); TRIGLYCERIDES LEVEL 165 MG/DL (<150)
== END ==
LOC: M SFHCADAM 10:18
PROVIDERS: ATTEND Family Medicine
DX: Z00.00 Encounter for general adult medical examination without abnormal findings (principal)

== ENCOUNTER → 2021-04-30 | Outpatient (CLI) | payer BC ==
[2021-04-30 14:13] LABS: HEMATOCRIT 36.5 % (36.0-47.0); HEMOGLOBIN 12.2 g/dl (12.0-15.5); MEAN CORPUSCULAR HEMOGLOBIN 29.8 pg (27.0-33.0); MEAN CORPUSCULAR HGB CONC 33.4 g/dl (32.0-36.5); PLATELET COUNT, AUTOMATED 206 10^3/uL (150-450)
[2021-04-30 15:24] LABS: HIV 1&2 SCREEN CENTAUR NEGATIVE (NEGATIVE)
[2021-04-30 18:10] LABS: GC DNA AMPLIFICATION NEGATIVE (NEGATIVE)
== END ==
LOC: M PLALAB 10:45
PROVIDERS: ATTEND Obstetrics & Gynecology
DX: O34.211 Maternal care for low transverse scar from previous cesarean delivery (principal); Z3A.00 Weeks of gestation of pregnancy not specified

== ENCOUNTER → 2021-06-19 | Outpatient (REF) | payer BC | LOC: M SFHCWAGY 12:37 | PROVIDERS: ATTEND Advanced Practice Midwife | DX: O34.211 Maternal care for low transverse scar from previous cesarean delivery (principal) ==

== ENCOUNTER → 2021-07-05 | Outpatient (CLI) | payer BC ==
--- NOTE | 2021-07-05 12:16 | REP ---
INDICATION: ANATOMY. COMPARISON: None. TECHNIQUE: Transabdominal scanning FINDINGS: Multiple ultrasonographic images of the gravid uterus shows a single living intrauterine gestation in variable positions. The placenta is posterior and not low-lying. The cervix measures 3.7 cm in length and is closed. Doppler interrogation of the heart shows a heart rate of 149 beats per minute. BPD: 4.3 cm 19 weeks 0 days HC: 16.8 cm 19 weeks 3 days AC: 15.4 cm 20 weeks 4 days FL: 3.3 cm 20 weeks 1 day The estimated weight is 339 g which is at the 41st percentile for a 20 week 2 day gestational age. The anatomical structures seen to be unremarkable are as follows: Thalami, cavum septum pellucidum, cerebellum, cisterna magna, cerebral ventricles, spine, extremities, upper lip, urinary bladder, stomach, and extremities. Kidneys, four-chamber heart, ventricular outflow tracts, cord insertion, and three-vessel umbilical cord were suboptimally visualized. IMPRESSION: Single living intrauterine gestation as described above an estimated gestational age of 20 weeks 0 days via composite criteria and an estimated date of delivery of 11/22/2021 by today's exam. No anomalies were detected, however, I recommend a follow-up examination to optimally visualize those structures not well seen today as described above. <Electronically signed by Clem Schilling > 07/05/21 [id number]
== END ==
LOC: M WHC 11:01
PROVIDERS: ATTEND Specialist
DX: Z34.82 Encounter for supervision of other normal pregnancy, second trimester (principal); Z3A.20 20 weeks gestation of pregnancy

== ENCOUNTER → 2021-08-07 | Outpatient (CLI) | payer BC ==
--- NOTE | 2021-08-08 11:46 | REP ---
INDICATION: F/U ANATOMY. COMPARISON: 07/05/2021. TECHNIQUE: Real-time sonographic evaluation of the gravid uterus performed. FINDINGS: Estimated gestational age is25 weeks 0 days, EDC 11/20/2021. Today's measurements indicate appropriate growth. Presentation: Variable Placenta posterior, grade 0, without evidence of placenta previa. heart rate is recorded at 152 beats per minute. Amniotic fluid is subjectively normal. Closed cervical length is measured at 4.5 cm. Biometry chart: BPD: 59 mm, 24 weeks 1 days, 32nd percentile. HC: 223 mm, 24 weeks 2 days, 35th percentile AC: 212 mm, 25 weeks 5 days, 65th percentile Femur length: 43 mm, 24 weeks 1 days, 33rd percentile HC to AC ratio: 1.05, normal range 1.01-1.20. Estimated weight: 753g, 38th percentile. anatomy: The cord insertion, three-vessel cord, bladder, four-chamber heart, ventricular outflow tracts and kidneys are visualized and are grossly unremarkable. IMPRESSION: Viable single intrauterine gestation as above. <Electronically signed by Ralph Salinas > 08/08/21 [id number]
== END ==
LOC: M WHC 15:01
PROVIDERS: ATTEND Advanced Practice Midwife
DX: Z36.2 Encounter for other antenatal screening follow-up (principal); Z3A.25 25 weeks gestation of pregnancy

== ENCOUNTER → 2021-08-14 | Outpatient (CLI) | payer BC ==
[2021-08-14 13:45] LABS: HEMATOCRIT 35.1 % (36.0-47.0); HEMOGLOBIN 11.6 g/dl (12.0-15.5); MEAN CORPUSCULAR HEMOGLOBIN 30.6 pg (27.0-33.0); MEAN CORPUSCULAR VOLUME 92.6 fl (80.0-96.0); PLATELET COUNT, AUTOMATED 178 10^3/uL (150-450); RED BLOOD COUNT 3.79 10^6/uL (4.00-5.40); WHITE BLOOD COUNT 7.7 10^3/uL (4.0-10.0)
[2021-08-14 15:43] LABS: GC DNA AMPLIFICATION NEGATIVE (NEGATIVE)
== END ==
LOC: M PLALAB 09:54
PROVIDERS: ATTEND Advanced Practice Midwife
DX: Z36.9 Encounter for antenatal screening, unspecified (principal); Z3A.22 22 weeks gestation of pregnancy
CPT/HCPCS: 36415; 82950; 85027; 86850; 86900; 86901; 87491; 87591; J2790

== ENCOUNTER 2021-08-28 18:15 | Outpatient (CLI) | payer BC ==
[2021-08-28] VITALS (17 sets, daily range): BP systolic 96–156; BP diastolic 50–85
[~2021-08-28] VITALS: Ht 157.5 cm; Wt 78.8 kg
[2021-08-28] MEDS ORDERED: HOME MED LIST COMPLETE! XX SCH (19:05)
[2021-08-28 19:55] LABS: HEMATOCRIT 38.2 % (36.0-47.0); HEMOGLOBIN 12.8 g/dl (12.0-15.5); MEAN CORPUSCULAR HEMOGLOBIN 30.2 pg (27.0-33.0); MEAN CORPUSCULAR HGB CONC 33.5 g/dl (32.0-36.5); MEAN CORPUSCULAR VOLUME 90.1 fl (80.0-96.0); PLATELET COUNT, AUTOMATED 207 10^3/uL (150-450); RED BLOOD COUNT 4.24 10^6/uL (4.00-5.40); WHITE BLOOD COUNT 9.9 10^3/uL (4.0-10.0)
[2021-08-28 20:30] LABS: ALBUMIN 3.5 GM/DL (3.2-5.2); ALT/SGPT 16 U/L (12-78); BILIRUBIN,TOTAL 0.2 MG/DL (0.2-1.0); BLOOD UREA NITROGEN 7 MG/DL (7-18); CALCIUM LEVEL 9.2 MG/DL (8.5-10.1); CARBON DIOXIDE LEVEL 24 MEQ/L (21-32); CHLORIDE LEVEL 109 MEQ/L (98-107); CREATININE FOR GFR 0.59 MG/DL (0.55-1.30); GLOMERULAR FILTRATION RATE > 60.0 (>60); GLUCOSE, FASTING 77 MG/DL (70-100); LDH LACTATE DEHYDROGENASE 182 U/L (84-246); POTASSIUM SERUM 3.9 MEQ/L (3.5-5.1); SODIUM LEVEL 140 MEQ/L (136-145); TOTAL PROTEIN 7.5 GM/DL (6.4-8.2); URIC ACID 4.1 MG/DL (2.6-6.0)
[2021-08-28 20:40] LABS: CREATININE,RANDOM URINE 31.9 MG/DL; TOTAL PROTEIN,RANDOM URINE 10.4 MG/DL (0.0-12.0)
[2021-08-28] MEDS ORDERED: ACETAMINOPHEN 500 MG TAB PO ONE (21:00)
[2021-08-29 00:07] VITALS: BP 107/58
--- NOTE | 2021-08-29 02:07 | IPNPDOC ---
Text Note Date of Service The patient was seen on 08/29/21. NOTE Subjective: Janet is a 35-year-old female who is a who is 28 weeks gestation. She presented to Labor and delivery with complaints of dizziness. Dizziness only occurred at night prior to bed. She reports symptoms feel like her head is spinning and occurs with movement. This was happening for about a week. On 08/28/21 she reported dizziness all day with any movement. Denies dizziness when moving head left to right. She also states she got a headache that started late this afternoon and rates it a 6 out of 10. Denies taking anything for her headache. She denies any history of migraines or vertigo. States she knows she doesn't drink enough fluid but has tried over the last week to increase intake. She did have a few elevated BPs when she arrived to unit. Given a dose of Tylenol and instructed to rest. at bedside. At time of reevaluation patient reported no dizziness with movement and no headache. OB Hx: -11/07/17: 38 weeks; section of living male weighing 6 lbs 7 oz due to NRFHR while fully dilated -11/12/18: 39 weeks repeat section of living female weighing 7 lbs 6 oz. Medical Hx: rosacea and allergic rhinitis Surgical Hx: section x2 and oral surgery Family history: HTN, hyperlipidemia, diabetes, bladder cancer, asthma, brain aneurysm Social Hx: ; former smoker, denies use of drugs or alcohol. Objective: VS and labs: see below. FHR: 130, moderate variability, positive accelerations, no decelerations [place]: no contractions General: Alert and oriented. Does not appear to be in any distress or in any pain. Respiratory: Regular rate and rhythm. Breathing comfortably on room air. Lungs clear bilaterally. Cardiac: Regular rate without murmurs. Abdomen: Soft and not tender with palpation. Attempt at table tilt test done. Patient reports dizziness not occurring and no nystagmus noted. Patient moved in multiple positions and reported dizziness when she stood up. Assessment: IUP at 28 weeks gestation, dizziness Plan: Reviewed findings with Dr. Ray and plan of care collaborated with him. Patient reports no headache after treatment and no elevated blood pressures were recorded once treated. Reviewed labs. Consider 24 hour urine if she has elevated BP in office. If symptoms persist we will do a neurology consult and a cardiac consult. Instructed patient that if she gets another headache she needs to take Tylenol. Reviewed preeclamptic symptoms. Reviewed access to care, kick count, labor signs and danger signs to report. VS,Fishbone, I+O VS, Fishbone, I+O Laboratory Tests 08/28/21 19:30 Item Value Date Time Sodium Level 140 MEQ/L 08/28/211929 Potassium Level 3.9 MEQ/L 08/28/211929 Chloride Level 109 MEQ/L H 08/28/211929 Carbon Dioxide Level 24 MEQ/L 08/28/211929 Anion Gap 7 MEQ/L L 08/28/211929 Blood Urea Nitrogen 7 MG/DL 08/28/211929 Creatinine 0.59 MG/DL 08/28/211929 Glomerular Filtration Rate > 60.0 08/28/211929 Fasting Glucose 77 MG/DL 08/28/211929 Uric Acid 4.1 MG/DL 08/28/211929 Calcium Level 9.2 MG/DL 08/28/211929 Total Bilirubin 0.2 MG/DL 08/28/211929 Aspartate Amino Transf (AST/SGOT) 11 U/L 08/28/211929 Alanine Aminotransferase (ALT/SGPT) 16 U/L 08/28/211929 Alkaline Phosphatase 87 U/L 08/28/211929 Lactate Dehydrogenase 182 U/L 08/28/211929 Total Protein 7.5 GM/DL 08/28/211929 Albumin 3.5 GM/DL 08/28/211929 Albumin/Globulin Ratio 0.9 L 08/28/211929 Item Value Date Time Urine Random Creatinine 31.9 MG/DL 08/28/211929 Urine Random Total Protein 10.4 MG/DL 08/28/211929 Item Value Date Time Coronavirus (COVID-19)(PCR) NEGATIVE 08/28/211934 Vital Signs Date Time Temp Pulse Resp B/P (MAP) Pulse Ox O2 Delivery O2 Flow Rate FiO2 08/29/21 00:07 97.6 66 107/58 (74) 08/28/21 18:36 16 08/28/21 18:31 99 Room Air Vital Signs Label Value Date Time Patient Temperature 98.8 degrees F 08/28/211830 Temperature Source Temporal 08/28/21 1831 Pulse 93 08/28/21 1831 Pulse 93 08/28/21 1831 Blood Pressure Assessment 131/73 (92) 08/28/21 1831 Source Automatic Cuff (NIBP) Blood Pressure Assessment 149/85 (106) 08/28/21 1836 Source Automatic Cuff (NIBP) Blood Pressure Assessment 145/82 (103) 08/28/21 1941 Source Automatic Cuff (NIBP) Blood Pressure Assessment 145/80 (101) 08/28/212051 Source Automatic Cuff (NIBP) Blood Pressure Assessment 106/55 (72) 08/28/212121 Source Automatic Cuff (NIBP) Blood Pressure Assessment 103/58 (73) 08/28/212135 Source Automatic Cuff (NIBP) Blood Pressure Assessment 103/57 (72) 08/28/21 215 Source Automatic Cuff (NIBP) Blood Pressure Assessment 101/50 (67) 08/28/21 2206 Source Automatic Cuff (NIBP) Blood Pressure Assessment 102/56 (71) 08/28/21 2221 Source Automatic Cuff (NIBP) Blood Pressure Assessment 103/51 (68) 08/28/21 2251 Source Automatic Cuff (NIBP) Blood Pressure Assessment 122/67 (85) 08/28/21 2307 Source Automatic Cuff (NIBP) Blood Pressure Assessment 96/50 (65) 08/28/21 2322 Source Automatic Cuff (NIBP) Blood Pressure Assessment 98/55 (69) 08/28/21 2336 Source Automatic Cuff (NIBP) Blood Pressure Assessment 108/59 (75) 08/28/21 2351 Source Automatic Cuff (NIBP) Blood Pressure Assessment 107/58 (74) 08/29/21 0007 Source Automatic Cuff (NIBP) MERY ANDREW CNM Aug 29, 2021 02:07
== END 2021-08-29 00:21 | disposition home or self-care (01) ==
LOC: M LDO 18:15
PROVIDERS: ATTEND Advanced Practice Midwife
DX: O26.893 Other specified pregnancy related conditions, third trimester (principal); R51.9 Headache, unspecified; R42 Dizziness and giddiness; Z3A.28 28 weeks gestation of pregnancy
CPT/HCPCS: 59025; 80053; 82247; 82565; 82570; 83615; 84156; 84450; 84460; 84550; 85027; U0002

== ENCOUNTER → 2021-08-30 | Outpatient (CLI) | payer BC | LOC: M LAB 08:40 | PROVIDERS: ATTEND Advanced Practice Midwife | DX: Z36.89 Encounter for other specified antenatal screening (principal); Z3A.00 Weeks of gestation of pregnancy not specified ==

== ENCOUNTER → 2021-09-12 | Outpatient (CLI) | payer BC | LOC: M LABSMTC 10:37 | PROVIDERS: ATTEND Pediatrics | DX: Z20.822 Contact with and (suspected) exposure to COVID-19 (principal) | CPT/HCPCS: C9803; U0003 ==

== ENCOUNTER → 2021-10-30 | Outpatient (CLI) | payer BC | LOC: M WHC 13:18 | PROVIDERS: ATTEND Obstetrics & Gynecology | DX: Z36.9 Encounter for antenatal screening, unspecified (principal); O34.211 Maternal care for low transverse scar from previous cesarean delivery; Z3A.37 37 weeks gestation of pregnancy ==

== ENCOUNTER → 2021-11-11 | Outpatient (REF) | payer BC ==
[~2021-11-11] MED LIST changes: +AMOX200S2 PO; +CLAR5TAB11 PO
== END ==
LOC: M SFHCWAGY 17:12
PROVIDERS: ATTEND Specialist
DX: Z36.89 Encounter for other specified antenatal screening (principal); Z3A.00 Weeks of gestation of pregnancy not specified

== ENCOUNTER → 2021-11-18 | Outpatient (CLI) | payer BC | LOC: M LABSMTC 09:24 | PROVIDERS: ATTEND Anesthesiology | DX: Z11.52 Encounter for screening for COVID-19 (principal); Z20.822 Contact with and (suspected) exposure to COVID-19 ==

== ENCOUNTER 2021-11-21 06:52 | Inpatient (IN) | payer BC ==
[~2021-11-21] VITALS: Ht 157.5 cm; Wt 75.0 kg
[2021-11-21] MEDS ORDERED: HOME MED LIST COMPLETE! XX SCH (07:40)
[2021-11-21] MEDS ORDERED: LACTATED RINGER'S 1000 ML IV STA (07:41)
[2021-11-21] MEDS ORDERED: METHYLERGONOVINE MALEATE 0.2 MG/ML VIAL (J2210) IM PRN (07:45)
[2021-11-21] MEDS ORDERED: OXYTOCIN DRIP 30 UNITS in IV 1 EA IV PRN ×4 (07:45)
[2021-11-21] MEDS ORDERED: TRANEXAMIC ACID INJection 1,000 MG in NS 100 ML IV PRN (07:45)
[2021-11-21] MEDS ORDERED: OXYTOCIN INJ 10 UNITS/ML VIAL (J2590) IM PRN (07:45)
[2021-11-21] MEDS ORDERED: LIDOCAINE 1% MDV 20ML VIAL INFIL PRN (07:45)
[2021-11-21] MEDS ORDERED: CARBOPROST TROMETHAMINE 250 MCG/ML AMP IM PRN (07:45)
[2021-11-21] MEDS ORDERED: LR 1,000 ML IV SCH ×2 (07:45→12:35)
[2021-11-21 07:56] LABS: HEMATOCRIT 34.3 % (36.0-47.0); HEMOGLOBIN 11.6 g/dl (12.0-15.5); MEAN CORPUSCULAR HEMOGLOBIN 29.5 pg (27.0-33.0); MEAN CORPUSCULAR HGB CONC 33.8 g/dl (32.0-36.5); MEAN CORPUSCULAR VOLUME 87.3 fl (80.0-96.0); PLATELET COUNT, AUTOMATED 196 10^3/uL (150-450); RED BLOOD COUNT 3.93 10^6/uL (4.00-5.40); WHITE BLOOD COUNT 13.8 10^3/uL (4.0-10.0)
[2021-11-21] MEDS ORDERED: FENTANYL 2MCG/ML ROPIVACAINE 0.2% IN 0.9% NACL 100ML IVBAG As Ordered ONE (08:13)
[2021-11-21 08:19] LABS: ALT/SGPT 12 U/L (12-78); BILIRUBIN,TOTAL 0.3 MG/DL (0.2-1.0); CREATININE FOR GFR 0.71 MG/DL (0.55-1.30); GLOMERULAR FILTRATION RATE > 60.0 (>60); LDH LACTATE DEHYDROGENASE 174 U/L (84-246); URIC ACID 4.9 MG/DL (2.6-6.0)
[2021-11-21] MEDS ORDERED: EPIDURAL/PCA KEYS XX PRN (08:55)
[2021-11-21] MEDS ORDERED: ONDANSETRON 4MG/2ML VIAL IV PRN ×4 (08:55→12:35)
[2021-11-21] MEDS ORDERED: diphenhydrAMINE 50MG/ML VIAL (J1200) IV PRN ×2 (08:55→11:40)
[2021-11-21] MEDS ORDERED: LACTATED RINGER'S 1000 ML IV PRN (08:55)
[2021-11-21] MEDS ORDERED: EPIDURAL COMMENT XX SCH (08:55)
[2021-11-21] MEDS ORDERED: REFRIGERATOR IV KEYS XX PRN (08:55)
[2021-11-21] MEDS ORDERED: NALOXONE INJ 0.4MG/1ML VIAL (J2310 PER 1MG) IV PRN ×3 (08:55→11:40)
[2021-11-21] MEDS ORDERED: ePHEDrine SULFATE 25 MG/5 ML(5MG/ML) SYRINGE IV PRN (08:55)
[2021-11-21] MEDS ORDERED: FENTANYL/ROPIVACAINE/NACL BAG 100 ML EPIDURAL SCH (08:55)
[2021-11-21] MEDS ORDERED: BICITRA 30ML SOLN UDC PO ONE (11:00)
[2021-11-21] MEDS ORDERED: ceFAZolin SOD 2 GM in IV 1 EA IV ONE (11:00)
[2021-11-21] MEDS ORDERED: AZITHROMYCIN INJ 500 MG, VIAL MATE ADAPTER 1 EACH in NS 250 ML IV ONE (11:00)
[2021-11-21] MEDS ORDERED: LIDOCAINE 2% W/EPINEPHRINE 20ML VIAL **PRES FREE As Ordered ONE (11:05)
[2021-11-21] MEDS ORDERED: ceFAZolin 2 GM/D5W 50 ML IV BAG (J0690 PER 500MG) As Ordered ONE (11:07)
[2021-11-21] MEDS ORDERED: AZITHROMYCIN INJ 500MG VIAL As Ordered ONE (11:08)
[2021-11-21] MEDS ORDERED: BICITRA 30ML SOLN UDC As Ordered ONE (11:09)
[2021-11-21] MEDS ORDERED: ONDANSETRON 4MG/2ML VIAL As Ordered ONE (11:31)
[2021-11-21] MEDS ORDERED: fentaNYL 100 MCG/2 ML INJECTION As Ordered ONE (11:31)
[2021-11-21] MEDS ORDERED: dexameTHASONE 4 MG/ML 1ML VIAL (J1100 PER 1MG) As Ordered ONE (11:31)
[2021-11-21] MEDS ORDERED: MORPHINE PRES-FREE INJ 10 MG/10 ML VIAL (J2274) As Ordered ONE (11:31)
[2021-11-21] MEDS ORDERED: NALBUPHINE HCL 10 MG/ML AMP (J2300) IV PRN (11:40)
[2021-11-21] MEDS ORDERED: ACETAMINOPHEN 1000MG 100ML IV BTL (OFIRMEV) (J0131 PER 10MG) As Ordered ONE (11:50)
[2021-11-21] MEDS ORDERED: KETOROLAC 60MG 2ML VIAL As Ordered ONE (11:50)
[2021-11-21] MEDS ORDERED: PERCOCET 5MG/325MG TAB PO PRN ×2 (12:05→12:35)
[2021-11-21] MEDS ORDERED: MEASLES,MUMPS,RUBELLA VACCINE INJ (MMR-II) (90707) SC SCH (12:05)
[2021-11-21] MEDS ORDERED: OXYTOCIN DRIP 30 UNITS in IV 1 EA IV SCH (12:05)
[2021-11-21] MEDS ORDERED: RHOGAM 300 MCG (1500 IU) INJ (J2790) IM SCH (12:05)
[2021-11-21] MEDS ORDERED: DOCUSATE SODIUM 100MG CAPSULE PO PRN (12:05)
[2021-11-21] MEDS ORDERED: fentaNYL 100 MCG/2 ML INJECTION IV PRN (12:35)
[2021-11-21] MEDS ORDERED: PILL CUTTER 1 EACH XX PRN (14:15)
[2021-11-21 14:40] VITALS: BP 135/65
[2021-11-21] MEDS: PERCOCET 5MG/325MG TAB PO PRN (14:48)
[2021-11-21] MEDS: LR 1,000 ML IV SCH ×2 (14:57→18:13)
[2021-11-21] MEDS: PRENATAL VITAMINS CHEWABLE TABLET PO SCH (14:57)
[2021-11-21 15:10] VITALS: BP 137/79
[2021-11-21] MEDS: METOCLOPRAMIDE INJ 10MG/2ML VIAL (J2765 PER 1) IV PRN ×2 (15:56→21:57)
[2021-11-21 16:15] VITALS: BP 113/58
[2021-11-21 17:32] VITALS: BP 132/66
[2021-11-21] MEDS: KETOROLAC 30 MG/ML 1ML VIAL IV SCH ×2 (17:59→23:02)
[2021-11-21 18:00] VITALS: BP 130/62
[2021-11-21 22:00] VITALS: BP 92/54
[2021-11-22 02:00] VITALS: BP 120/62
[2021-11-22] MEDS: LR 1,000 ML IV SCH (04:29)
[2021-11-22] MEDS: KETOROLAC 30 MG/ML 1ML VIAL IV SCH (05:30)
[2021-11-22 05:52] VITALS: BP 107/56
[2021-11-22] MEDS: PRENATAL VITAMINS CHEWABLE TABLET PO SCH (08:13)
[2021-11-22 08:38] LABS: HEMATOCRIT 25.4 % (36.0-47.0); MEAN CORPUSCULAR HEMOGLOBIN 30.5 pg (27.0-33.0); MEAN CORPUSCULAR HGB CONC 33.1 g/dl (32.0-36.5); MEAN CORPUSCULAR VOLUME 92.4 fl (80.0-96.0); PLATELET COUNT, AUTOMATED 137 10^3/uL (150-450); RED BLOOD COUNT 2.75 10^6/uL (4.00-5.40); WHITE BLOOD COUNT 11.9 10^3/uL (4.0-10.0)
[2021-11-22 08:41] LABS: HEMOGLOBIN 8.4 g/dl (12.0-15.5)
[2021-11-22 10:00] VITALS: BP 121/64
[2021-11-22] MEDS: IBUPROFEN 800 MG TAB PO SCH ×2 (13:49→22:30)
[2021-11-22 14:00] VITALS: BP 123/62
[2021-11-22] MEDS: SIMETHICONE 80MG CHEW TAB PO PRN ×2 (16:51→22:38)
[2021-11-22] MEDS: PERCOCET 5MG/325MG TAB PO PRN (18:31)
[2021-11-22 22:00] VITALS: BP 108/58
[2021-11-23] MEDS: PERCOCET 5MG/325MG TAB PO PRN
[2021-11-23 02:00] VITALS: BP 118/56
[2021-11-23 06:00] VITALS: BP 127/69
[2021-11-23] MEDS: IBUPROFEN 800 MG TAB PO SCH (06:30)
[2021-11-23] MEDS: PRENATAL VITAMINS CHEWABLE TABLET PO SCH (08:39)
[2021-11-23] MEDS ORDERED: IBUP80TA PO (09:15)
[2021-11-23] MEDS ORDERED: OXYC1SOL3 PO (09:15)
[2021-11-23 10:02] VITALS: BP 103/54
== END 2021-11-23 12:10 | disposition home or self-care (01) | DRG 540 ==
LOC: M LDO 06:52 → M LDI 07:37 → M OBS 14:29
PROVIDERS: ADMIT Advanced Practice Midwife; ATTEND Specialist
PROC: 0UB70ZZ Excision of Bilateral Fallopian Tubes, Open Approach (ICD-10-PCS; 2021-11-21)
PROC: 10D00Z1 Extraction of Products of Conception, Low, Open Approach (ICD-10-PCS; principal; 2021-11-21 11:29)
DX: O34.211 Maternal care for low transverse scar from previous cesarean delivery (principal); O64.0XX0 Obstructed labor due to incomplete rotation of fetal head, not applicable or unspecified; O48.0 Post-term pregnancy; Z3A.40 40 weeks gestation of pregnancy; O66.41 Failed attempted vaginal birth after previous cesarean delivery; Z37.0 Single live birth; Z30.2 Encounter for sterilization; O24.429 Gestational diabetes mellitus in childbirth, unspecified control

== ENCOUNTER → 2022-05-29 | Outpatient (CLI) | payer BC ==
[~2022-05-29] MED LIST changes: +IBUP80TA PO; +OXYC1SOL3 PO
== END ==
LOC: M WHC 10:44
PROVIDERS: ATTEND Nurse Practitioner Adult Health
DX: E04.1 Nontoxic single thyroid nodule (principal); R22.1 Localized swelling, mass and lump, neck

== ENCOUNTER → 2022-08-12 | Outpatient (CLI) | payer BC ==
[2022-08-12 13:05] LABS: HEMATOCRIT 40.5 % (36.0-47.0); HEMOGLOBIN 12.9 g/dl (12.0-15.5); MEAN CORPUSCULAR HEMOGLOBIN 29.2 pg (27.0-33.0); MEAN CORPUSCULAR HGB CONC 31.9 g/dl (32.0-36.5); MEAN CORPUSCULAR VOLUME 91.6 fl (80.0-96.0); PLATELET COUNT, AUTOMATED 196 10^3/uL (150-450); RED BLOOD COUNT 4.42 10^6/uL (4.00-5.40); WHITE BLOOD COUNT 6.8 10^3/uL (4.0-10.0)
[2022-08-12 13:59] LABS: ALBUMIN 4.3 GM/DL (3.2-5.2); ALT/SGPT 23 U/L (12-78); BILIRUBIN,TOTAL 0.5 MG/DL (0.2-1.0); BLOOD UREA NITROGEN 11 MG/DL (7-18); CALCIUM LEVEL 9.2 MG/DL (8.5-10.1); CARBON DIOXIDE LEVEL 26 MEQ/L (21-32); CHLORIDE LEVEL 108 MEQ/L (98-107); CREATININE FOR GFR 0.87 MG/DL (0.55-1.30); GLOMERULAR FILTRATION RATE > 60.0 (>60); GLUCOSE, FASTING 92 MG/DL (70-100); SODIUM LEVEL 143 MEQ/L (136-145); THYROID STIMULATING HORMONE 0.789 uIU/ML (0.358-3.740); TOTAL PROTEIN 7.8 GM/DL (6.4-8.2)
[2022-08-13 14:08] LABS: IgG P18 AB Absent (.); IgG P23 AB Absent (.); IgG P28 AB Absent (.); IgG P30 AB Absent (.); IgG P39 AB Present (.); IgG P41 AB Present (.); IgG P45 AB Absent (.); IgG P66 AB Absent (.); IgG P93 AB Present (.); IgM P23 AB Absent (.); IgM P39 AB Absent (.); IgM P41 AB Absent (.); LYME IgG WB INTERPRETATION Negative (.); LYME IgM WB INTERPRETATION Negative (.)
== END ==
LOC: M LABDRWAD 08:39
PROVIDERS: ATTEND Nurse Practitioner Adult Health
DX: E04.1 Nontoxic single thyroid nodule (principal); R53.83 Other fatigue

== ENCOUNTER → 2022-09-02 | Outpatient (CLI) | payer BC | LOC: M PLAIMG 08:15 | PROVIDERS: ATTEND Otolaryngology | DX: J32.4 Chronic pansinusitis (principal) ==

== ENCOUNTER → 2022-09-12 | Outpatient (REF) | payer BC | LOC: M PLALAB 16:15 | PROVIDERS: ATTEND Nurse Practitioner Family | DX: Z12.4 Encounter for screening for malignant neoplasm of cervix (principal) ==

== ENCOUNTER → 2023-08-27 | Outpatient (REF) | payer BC | LOC: M SFHCPLAZ 09:06 | PROVIDERS: ATTEND Nurse Practitioner Adult Health | DX: Z53.9 Procedure and treatment not carried out, unspecified reason (principal); Z00.00 Encounter for general adult medical examination without abnormal findings; E04.1 Nontoxic single thyroid nodule; Z13.1 Encounter for screening for diabetes mellitus ==

== ENCOUNTER → 2024-10-10 | Outpatient (CLI) | payer BC | LOC: M WHC 10:21 | PROVIDERS: ATTEND Nurse Practitioner Adult Health | DX: E04.1 Nontoxic single thyroid nodule (principal) ==

== ENCOUNTER → 2025-08-30 | Outpatient (CLI) | payer BC ==
[2025-08-30 14:32] LABS: PLATELET COUNT, AUTOMATED 225 10^3/uL (150-450)
[2025-08-30 14:37] LABS: ALT/SGPT 35 U/L (7.0-40); AST/SGOT 22 U/L (<34); CALCIUM LEVEL 9.5 MG/DL (8.5-10.1); CARBON DIOXIDE LEVEL 26 MMOL/L (20-31); CHLORIDE LEVEL 106 MMOL/L (98-107); CREATININE FOR GFR 0.80 MG/DL (0.55-1.30); FREE T4 1.08 NG/DL (0.89-1.76); GLOMERULAR FILTRATION RATE > 90.0 (>60); POTASSIUM SERUM 4.3 MMOL/L (3.5-5.1); SODIUM LEVEL 141 MMOL/L (136-145)
[2025-08-30 14:53] LABS: ESTIMATED AVERAGE GLUCOSE 126.0 MG/DL (60-110)
== END ==
LOC: M PLALAB 09:48
PROVIDERS: ATTEND Nurse Practitioner Adult Health
DX: Z00.00 Encounter for general adult medical examination without abnormal findings (principal); E55.9 Vitamin D deficiency, unspecified